=== PATIENT | female | born 1990 | race Caucasian/White ===

== ENCOUNTER 2017-01-21 19:53 | Emergency (ER) | payer OTHER ==
[~2017-01-21] VITALS: Ht 154.9 cm; Wt 70.0 kg
[2017-01-21 20:01] VITALS: TEMP 36.9; Ht 154.9 cm; Wt 70.0 kg
--- NOTE | 2017-01-21 20:46 | EMERGENCY ROOM VISIT NOTE ---
History Report prepared by Kevin: Jesus [place] Under the Supervision of: Dr. Jose M Geiger M.D. First contact with patient: 20:33 Chief Complaint: ABDOMINAL PAIN Stated Complaint: 3-5 WEEKS PREG, BAD CRAMPING Nursing Triage Summary: abdominal cramping for 2 hours. pt dx at [facility] 3-5 weeks along. no bleeding or spotting. History of Present Illness The patient is a 26 year old female who presents to the Emergency Room with complaints of intermittent abdominal cramping that began 2 hours ago. She rates her pain an 8/10. Last week, she was experiencing this same abdominal cramping so she went to [facility] because she thought it was a UTI. She was diagnosed with and discharged. Earlier that month, they told her that she would not be able to have children secondary to her PCOS. Her last menstrual period was December 09. This is her first . Her cramping symptoms then went away until today. She came here because she was told that [facility] does not know how to treat and would have been transferred. She denies any vaginal bleeding, burning with urinating, back pain , fevers, chills, or vomiting. She notes that she gets nauseated at night, but believes this to be from the . Source of History: patient Onset: 2 hours ago Position: abdomen (lower) Symptom Intensity: 8/10 Quality: cramping Timing: constant Associated Symptoms: + nausea, No fevers, No chills, No vomiting, No back pain, No urinary symptoms Review of Systems See HPI for pertinent positives and negatives. A total of ten systems were reviewed and were otherwise negative. Past Medical & Surgical Medical Problems: (1) Anxiety (2) Asthma (3) PCOS (polycystic ovarian syndrome) Family History Patient reports no known family medical history. Social History Smoking Status: Former Smoker Smokeless Tobacco Use: No Alcohol Use: none Drug Use: none Occupation Status: employed Current/Historical Medications Scheduled Pediatric Multiple Vitamin W/ (Flintstones Chewable), 1 TAB PO QAM Allergies Coded Allergies: Iodide (Verified Allergy, Intermediate, hives, 01/21/17) Sulfamethoxazole w/Trimethoprim (Verified Allergy, Intermediate, rash, 01/21/17) Amoxicillin (Verified Allergy, Unknown, hives, 01/21/17) Clavulanic Acid (Verified Allergy, Unknown, hives, 01/21/17) Nitrofurantoin (Verified Allergy, Unknown, rash, 01/21/17) Penicillins (Verified Allergy, Unknown, swelling, 01/21/17) Physical Exam Vital Signs Date Time Temp Pulse Resp B/P (MAP) Pulse Ox O2 Delivery O2 Flow Rate FiO2 01/22/17 00:04 72 15 108/68 99 01/21/17 23:18 69 14 112/71 99 Room Air 01/21/17 22:13 82 16 113/68 100 Room Air 01/21/17 21:23 74 01/21/17 21:19 93 18 113/73 99 Room Air 01/21/17 20:01 36.9 92 18 134/86 99 Room Air Physical Exam GENERAL: Awake, alert, well-appearing, in no distress HENT: Normocephalic, atraumatic. Dry mucous membranes. EYES: Normal conjunctiva. Sclera non-icteric. NECK: Supple. No nuchal rigidity. FROM. No JVD. RESPIRATORY: Clear to auscultation. CARDIAC: Regular rate, normal rhythm. Extremities warm and well perfused. Pulses equal. ABDOMEN: Soft, non-distended. No tenderness to palpation. No rebound or guarding. No masses. RECTAL: Deferred. MUSCULOSKELETAL: Chest examination reveals no tenderness. The back is symmetrical on inspection without obvious abnormality. There is no CVA tenderness to palpation. No joint edema. LOWER EXTREMITIES: Calves are equal size bilaterally and non-tender. No edema. No discoloration. NEURO: Normal sensorium. No sensory or motor deficits noted. SKIN: No rash or jaundice noted. Medical Decision & Procedures ER Provider Diagnostic Interpretation: Radiology results as stated below per my review and radiologist interpretation: ECTOPIC ULTRASOUND CLINICAL HISTORY: Abdominal cramping in r/o ectopic/SAB COMPARISON STUDY: None. FINDINGS: Transabdominal and transvaginal scanning of the pelvis was performed. The uterus is retroflexed. There is a single intrauterine gestational sac, yolk sac, and pole. The crown-rump length is 5.4 mm consistent with a 6 week and 2 day intrauterine gestation. heart rate was identified at 127 bpm. The ovaries are within normal limits. Small complex cyst within the left ovary favors a corpus luteum. There are few nabothian cysts seen within the cervix. The cervix appears closed. There is a tiny subchorionic hematoma which is considered to be within the range of normal limits. IMPRESSION: A single viable 6 week and 2 day intrauterine gestation demonstrating a heart rate of 127 bpm. Electronically signed by: Dustin Jolley M.D. 01/21/2017 10:58 PM Dictated Date/Time: 01/21/2017 10:55 PM Laboratory Results 01/21/17 21:15 Red Blood Count 4.37, Mean Corpuscular Volume 85.4, Mean Corpuscular Hemoglobin 30.2, Mean Corpuscular Hemoglobin Concent 35.4, Mean Platelet Volume 11.4, Neutrophils (%) (Auto) 71.0, Lymphocytes (%) (Auto) 21.5, Monocytes (%) (Auto) 5.9, Eosinophils (%) (Auto) 0.9, Basophils (%) (Auto) 0.4, Neutrophils # (Auto) 8.75, Lymphocytes # (Auto) 2.65, Monocytes # (Auto) 0.73, Eosinophils # (Auto) 0.11, Basophils # (Auto) 0.05 01/21/17 21:15 Test 01/21/17 21:15 01/21/17 22:02 White Blood Count 12.33 K/uL (4.8-10.8) Red Blood Count 4.37 M/uL (4.2-5.4) Hemoglobin 13.2 g/dL (12.0-16.0) Hematocrit 37.3 % (37-47) Mean Corpuscular Volume 85.4 fL (80-100) Mean Corpuscular Hemoglobin 30.2 pg (25-34) Mean Corpuscular Hemoglobin Concent 35.4 g/dl (32-36) Platelet Count 176 K/uL (130-400) Mean Platelet Volume 11.4 fL (7.4-10.4) Neutrophils (%) (Auto) 71.0 % Lymphocytes (%) (Auto) 21.5 % Monocytes (%) (Auto) 5.9 % Eosinophils (%) (Auto) 0.9 % Basophils (%) (Auto) 0.4 % Neutrophils # (Auto) 8.75 K/uL (1.4-6.5) Lymphocytes # (Auto) 2.65 K/uL (1.2-3.4) Monocytes # (Auto) 0.73 K/uL (0.11-0.59) Eosinophils # (Auto) 0.11 K/uL (0-0.5) Basophils # (Auto) 0.05 K/uL (0-0.2) RDW Standard Deviation 39.4 fL (36.4-46.3) RDW Coefficient of Variation 12.7 % (11.5-14.5) Immature Granulocyte % (Auto) 0.3 % Immature Granulocyte # (Auto) 0.04 K/uL (0.00-0.02) Anion Gap 6.0 mmol/L (3-11) Est Creatinine Clear Calc Drug Dose 98.6 ml/min Estimated GFR () 122.5 Estimated GFR (Non- 105.7 BUN/Creatinine Ratio 12.7 (10-20) Calcium Level 9.1 mg/dl (8.5-10.1) Total Bilirubin 0.2 mg/dl (0.2-1) Direct Bilirubin < 0.1 mg/dl (0-0.2) Aspartate Amino Transf (AST/SGOT) 11 U/L (15-37) Alanine Aminotransferase (ALT/SGPT) 17 U/L (12-78) Alkaline Phosphatase 57 U/L (45-117) Total Protein 7.6 gm/dl (6.4-8.2) Albumin 4.0 gm/dl (3.4-5.0) Lipase 150 U/L (73-393) Human Chorionic Gonadotropin, Quant 79455 mIU/mL Urine Color YELLOW Urine Appearance CLEAR (CLEAR) Urine pH 6.5 (4.5-7.5) Urine Specific [place] 1.019 (1.000-1.030) Urine Protein NEG (NEG) Urine Glucose (UA) NEG (NEG) Urine Ketones NEG (NEG) Urine Occult Blood NEG (NEG) Urine Nitrite NEG (NEG) Urine Bilirubin NEG (NEG) Urine Urobilinogen NEG (NEG) Urine Leukocyte Esterase NEG (NEG) Laboratory results reviewed by me Medications Administered Medications (Trade) Dose Ordered Sig/Cherie Route Start Time Stop Time Status Last Admin Dose Admin Sodium Chloride 1,000 ml @ 999 mls/hr Q1H1M STAT IV 01/21/17 20:51 01/21/17 21:51 DC 01/21/17 21:18 999 MLS/HR Sodium Chloride 1,000 ml @ 999 mls/hr Q1H1M STAT IV 01/21/17 22:58 01/21/17 23:58 DC 01/21/17 23:19 999 MLS/HR ED Course 2032: The patient was evaluated in room C4. A complete history and physical exam was performed. 2050: Ordered Tylenol Tab 1000 mg PO, Sodium Chloride 1000 ml @ 999 mls/hr IV 2146: The patient's bedside US showed no definitive IUP. She's going to be a formal US. 2257: Ordered Sodium Chloride 1000 ml @ 999 mls/hr IV Medical Decision I reviewed the patient's past medical history, medications, and the nursing notes as described above. Differential diagnosis includes but is not limited to: miscarriage, musculoskeletal strain, dehydration, electrolyte abnormalities, UTI, pyelonephritis, and ectopic . The patient is a 26-year-old woman with a past medical history PCO S presents to department for abdominal cramping per history of present illness. The patient is in no acute distress, afebrile with stable vital signs. HCG 30,000. Labs otherwise unremarkable. Bedside transabdominal ultrasound attempted to visualize IUP limited secondary to station all age with her patient's bladder remained decompressed despite 1 L of IV fluids consistent with her dry clinical appearance. Dehydration most likely precipitating patient's abdominal cramping and with further IV fluid hydration cramping had resolved. Formal transvaginal ultrasound shows a viable 6 week and 2 day fetus with heart rate 129. The patient has no vaginal symptoms and thus in her improvement with hydration no indication for pelvic exam at this time. Patient is agreeable with this. Findings and plan for follow-up reviewed patient. Patient agreeable and d/c'd per discharge instructions. Medication Reconcilliation Current Medication List: was personally reviewed by me Blood Pressure Screening Patient's blood pressure: Normal blood pressure Blood pressure disposition: Did not require urgent referral Impression Primary Impression: Abdominal cramping Additional Impression: Intrauterine Scribe Attestation The scribe's documentation has been prepared under my direction and personally reviewed by me in its entirety. I confirm that the note above accurately reflects all work, treatment, procedures, and medical decision making performed by me. Departure Information Dispostion Home / Self-Care Referrals Nazario Fowler M.D. 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 Your cramping was most likely due to dehydration. Otherwise, your exam, lab results, and ultrasound did not show signs of an emergent condition at this time. Return to the emergency department for worsening symptoms as described in the accompanying instructions. ECTOPIC ULTRASOUND CLINICAL HISTORY: Abdominal cramping in r/o ectopic/SAB COMPARISON STUDY: None. FINDINGS: Transabdominal and transvaginal scanning of the pelvis was performed. The uterus is retroflexed. There is a single intrauterine gestational sac, yolk sac, and pole. The crown-rump length is 5.4 mm consistent with a 6 week and 2 day intrauterine gestation. heart rate was identified at 127 bpm. The ovaries are within normal limits. Small complex cyst within the left ovary favors a corpus luteum. There are few nabothian cysts seen within the cervix. The cervix appears closed. There is a tiny subchorionic hematoma which is considered to be within the range of normal limits. IMPRESSION: A single viable 6 week and 2 day intrauterine gestation demonstrating a heart rate of 127 bpm. Problem Qualifiers
[2017-01-21] MEDS ORDERED: SODIUM CHLORIDE 0.9% 1000ML 1,000 ML IV STA ×2 (20:51→22:58)
[2017-01-21] MEDS ORDERED: ACETAMINOPHEN 500 MG TAB PO STA (20:51)
[2017-01-21] MEDS ORDERED: PEDICHW50 PO (20:59)
[2017-01-21 21:26] LABS: BASO % 0.4 %; BASO ABS # 0.05 K/uL (0-0.2); COMPLETE YES; EOS % 0.9 %; HEMATOCRIT 37.3 % (37-47); IG% 0.3 %; LYMPH % 21.5 %; LYMPH ABS # 2.65 K/uL (1.2-3.4); MEAN CELL VOLUME 85.4 fL (80-100); MEAN CORPUSCULAR HEMOGLOBIN 30.2 pg (25-34); MEAN CORPUSCULAR HGB CONC 35.4 g/dl (32-36); MEAN PLATELET VOLUME 11.4 fL (7.4-10.4); MONO % 5.9 %; PLATELET COUNT 176 K/uL (130-400); RED BLOOD COUNT 4.37 M/uL (4.2-5.4); WHITE BLOOD COUNT 12.33 K/uL (4.8-10.8)
[2017-01-21 21:46] LABS: ALT/SGPT 17 U/L (12-78); BLOOD UREA NITROGEN 10 mg/dl (7-18); BUN/CREATININE RATIO 12.7 (10-20); CALCIUM 9.1 mg/dl (8.5-10.1); CARBON DIOXIDE 26 mmol/L (21-32); CHLORIDE 106 mmol/L (98-107); CREATININE 0.78 mg/dl (0.60-1.20); GLUCOSE 86 mg/dl (70-99); POTASSIUM 3.2 mmol/L (3.5-5.1); SODIUM 139 mmol/L (136-145)
[2017-01-21 21:49] LABS: ALKALINE PHOSPHATASE 57 U/L (45-117); AST/SGOT 11 U/L (15-37)
[2017-01-21 22:17] LABS: URINE APPEARANCE CLEAR (CLEAR); URINE BILIRUBIN NEG (NEG); URINE COLOR YELLOW; URINE NITRITE NEG (NEG); URINE PH 6.5 (4.5-7.5); URINE SPECIFIC GRAVITY 1.019 (1.000-1.030); UROBILINOGEN NEG (NEG); ZZUR CULT IF INDIC CLEAN CATCH NO
[2017-01-21 22:21] LABS: MANUAL MICROSCOPIC REQUIRED? NO; REVIEW REQ? NO
--- NOTE | 2017-01-21 23:00 | DIAGNOSTIC IMAGING REPORT ---
ECTOPIC ULTRASOUND CLINICAL HISTORY: Abdominal cramping in r/o ectopic/SAB COMPARISON STUDY: None. FINDINGS: Transabdominal and transvaginal scanning of the pelvis was performed. The uterus is retroflexed. There is a single intrauterine gestational sac, yolk sac, and pole. The crown-rump length is 5.4 mm consistent with a 6 week and 2 day intrauterine gestation. heart rate was identified at 127 bpm. The ovaries are within normal limits. Small complex cyst within the left ovary favors a corpus luteum. There are few nabothian cysts seen within the cervix. The cervix appears closed. There is a tiny subchorionic hematoma which is considered to be within the range of normal limits. IMPRESSION: A single viable 6 week and 2 day intrauterine gestation demonstrating a heart rate of 127 bpm. Electronically signed by: Dustin Jolley M.D. 01/21/2017 10:58 PM Dictated Date/Time: 01/21/2017 10:55 PM
[2017-01-22 00:04] VITALS: BP 108/68; PULSE 72; O2SAT 99
== END 2017-01-22 00:04 | disposition home or self-care (01) ==
LOC: C.EDB 19:54 → C.EDC 01-22 00:04
DX: O26.891 Other specified pregnancy related conditions, first trimester (principal); R10.9 Unspecified abdominal pain; O99.511 Diseases of the respiratory system complicating pregnancy, first trimester; J45.909 Unspecified asthma, uncomplicated; O99.281 Endocrine, nutritional and metabolic diseases complicating pregnancy, first trimester; E28.2 Polycystic ovarian syndrome; Z3A.01 Less than 8 weeks gestation of pregnancy; Z87.891 Personal history of nicotine dependence

== ENCOUNTER 2017-01-24 17:46 | Emergency (ER) | payer OTHER ==
[~2017-01-24] VITALS: Ht 154.9 cm; Wt 69.9 kg
[~2017-01-24 17:46] MED LIST: PEDICHW50 PO
[2017-01-24 17:55] VITALS: BP 122/86; TEMP 37; Ht 154.9 cm; Wt 69.9 kg
[2017-01-24 19:02] LABS: BASO % 0.3 %; BASO ABS # 0.04 K/uL (0-0.2); COMPLETE YES; EOS % 0.8 %; HEMATOCRIT 40.4 % (37-47); IG% 0.3 %; LYMPH % 22.2 %; LYMPH ABS # 2.97 K/uL (1.2-3.4); MEAN CELL VOLUME 85.2 fL (80-100); MEAN CORPUSCULAR HEMOGLOBIN 31.2 pg (25-34); MEAN CORPUSCULAR HGB CONC 36.6 g/dl (32-36); MEAN PLATELET VOLUME 11.8 fL (7.4-10.4); MONO % 5.5 %; NEUT % 70.9 %; PLATELET COUNT 210 K/uL (130-400); RED BLOOD COUNT 4.74 M/uL (4.2-5.4); WHITE BLOOD COUNT 13.36 K/uL (4.8-10.8)
[2017-01-24 19:21] LABS: BUN/CREATININE RATIO 8.2 (10-20); CALCIUM 8.8 mg/dl (8.5-10.1); CREATININE 0.7 mg/dl (0.60-1.20); POTASSIUM 3.5 mmol/L (3.5-5.1)
[2017-01-24 19:23] LABS: ALB/GLOB RATIO 1.1 (0.9-2)
[2017-01-24 19:39] LABS: URINE APPEARANCE CLEAR (CLEAR); URINE BILIRUBIN NEG (NEG); URINE COLOR YELLOW; URINE NITRITE NEG (NEG); URINE PH 7.5 (4.5-7.5); UROBILINOGEN NEG (NEG); ZZUR CULT IF INDIC CLEAN CATCH NO
[2017-01-24 19:40] LABS: MANUAL MICROSCOPIC REQUIRED? NO; REVIEW REQ? NO
--- NOTE | 2017-01-24 20:07 | DIAGNOSTIC IMAGING REPORT ---
<14 WKS SINGLE CLINICAL HISTORY: 26 years-old Female presenting with , lower abdominal cramping, last menstrual period 12/09/2016. TECHNIQUE: Real-time grayscale and M-mode Doppler ultrasound imaging of the pelvis was performed first using a transabdominal probe and subsequently transvaginal for better characterization. COMPARISON: 01/21/2017. FINDINGS: Uterus: Single live intrauterine . Yolk sac measures 5 mm. [place]-rump length measures 8 mm corresponding to an estimated gestational age of 6 weeks 5 days. Estimated date of delivery 09/14/2017. heart rate 100 beats per minute. Retroverted uterus. Normal amniotic fluid volume. Unable to accurately assess placental implantation secondary to early gestational age. No perigestational fluid to suggest hemorrhage. Cervix long and closed. Nabothian cysts noted. Right adnexa: Right ovary normal. Right ovary measures 3.0 x 1.5 x 2.5 cm. Normal color Doppler flow and arterial and venous waveforms within the ovarian parenchyma. Left adnexa: Left ovary with corpus luteum. Left ovary measures 4.5 x 2.5 x 2.1 cm. Normal color Doppler flow and arterial and venous waveforms within the ovarian parenchyma. Other: No free fluid. IMPRESSION: Single live intrauterine with estimated gestational age 6 weeks 5 days and estimated date of delivery 09/14/2017. Electronically signed by: Juan López M.D. 01/24/2017 8:06 PM Dictated Date/Time: 01/24/2017 8:01 PM
--- NOTE | 2017-01-24 20:26 | EMERGENCY ROOM VISIT NOTE ---
History First contact with patient: 18:42 Chief Complaint: ABDOMINAL PAIN Stated Complaint: 6WKS-5DAYS PREG W/CRAMPING Nursing Triage Summary: patient 6 week and has been having cramping no bleeding/ OBGYN told her to come in and be evaluated if the cramping got worse. History of Present Illness The patient is a 26 year old female who presents to the Emergency Room with complaints of "abdominal cramping 4 hours. She notes it is lower in the abdomen, and it feels like she is experiencing her menses. She states she is not menstruating currently. She is 6 weeks, 5 days . She states that she was seen here not long ago for similar. She sees allen Cisneros ADMINISTRATIVE AND PROGRAM SPECIALIST on the of this month. She denies any vaginal bleeding, urinary symptoms, vaginal discharge. She denies any fevers or chills. This is her first . Review of Systems A complete 6-point Review of Systems was discussed with the patient, with pertinent positives and negatives listed in the History of Present Illness. All remaining Review of Systems questions can be considered negative unless otherwise specified. Past Medical/Surgical History Medical Problems: (1) Anxiety (2) Asthma (3) PCOS (polycystic ovarian syndrome) Family History Patient reports no known family medical history. Social History Smoking Status: Former Smoker Alcohol Use: none Drug Use: none Occupation Status: employed Current/Historical Medications No Active Prescriptions or Reported Meds Physical Exam Vital Signs Date Time Temp Pulse Resp B/P (MAP) Pulse Ox O2 Delivery O2 Flow Rate FiO2 01/24/17 21:09 82 18 100 01/24/17 17:55 37.0 104 18 122/86 99 Room Air Physical Exam VITAL SIGNS - Vital signs and nursing notes were reviewed. Stable. GENERAL - 26-year-old female appearing her stated age who is in no acute distress. Communicates well with provider and answers questions appropriately. SKIN - Without rashes. No petechia or meningeal rashes. LUNGS - Chest wall symmetric without accessory muscle use, intercostals retractions, or central cyanosis. Normal vesicular breath sounds CTA B/L. No wheezes, rales, or rhonchi appreciated. CARDIAC - RRR with S1/S2. No murmur, rubs, or gallops appreciated. ABDOMEN - Abdominal contour normal without pulsations or visible masses. BS normoactive all four quadrants. No tenderness, palpable masses, hepatosplenomegaly, or ascites noted. EXTREMITIES - No clubbing or peripheral cyanosis. No pretibial edema present. + 5/5 strength noted in UE/LE bilaterally. PELVIC EXAM: The patient's nurse was present to assist with exam, and daycare director. The patient was educated upon what her pelvic exam was, and she was offered to decline. Patient did not decline. I explained to her the pelvic exam. The patient was prepared and positioned for best examination. Patient was positioned by nurse. The external genitalia, mons pubis, labia majora, labia minora, clitoris, he urethral meatus, Bartholin's glands, perineum, and anus were within normal limits. The speculum was held then a 45 angle and properly lubricated, the speculum was inserted without difficulty to the depth of the cervix. Speculum was then open slowly. Cervix was identified. The cervix was within normal limits and did not display any purulent discharge nor was erythematous. Closed cervix and no bleeding. Patient did not experience any discomfort. The exam was concluded, the nurse felt the patient back to her bed. Exam was unremarkable and tolerated well without complication. Medical Decision & Procedures ER Provider Diagnostic Interpretation: <14 WKS SINGLE CLINICAL HISTORY: 26 years-old Female presenting with , lower abdominal cramping, last menstrual period 12/09/2016. TECHNIQUE: Real-time grayscale and M-mode Doppler ultrasound imaging of the pelvis was performed first using a transabdominal probe and subsequently transvaginal for better characterization. COMPARISON: 01/21/2017. FINDINGS: Uterus: Single live intrauterine . Yolk sac measures 5 mm. [place]-rump length measures 8 mm corresponding to an estimated gestational age of 6 weeks 5 days. Estimated date of delivery 09/14/2017. heart rate 100 beats per minute. Retroverted uterus. Normal amniotic fluid volume. Unable to accurately assess placental implantation secondary to early gestational age. No perigestational fluid to suggest hemorrhage. Cervix long and closed. Nabothian cysts noted. Right adnexa: Right ovary normal. Right ovary measures 3.0 x 1.5 x 2.5 cm. Normal color Doppler flow and arterial and venous waveforms within the ovarian parenchyma. Left adnexa: Left ovary with corpus luteum. Left ovary measures 4.5 x 2.5 x 2.1 cm. Normal color Doppler flow and arterial and venous waveforms within the ovarian parenchyma. Other: No free fluid. IMPRESSION: Single live intrauterine with estimated gestational age 6 weeks 5 days and estimated date of delivery 09/14/2017. Electronically signed by: Juan López M.D. 01/24/2017 8:06 PM Dictated Date/Time: 01/24/2017 8:01 PM Laboratory Results 01/24/17 18:25 Red Blood Count 4.74, Mean Corpuscular Volume 85.2, Mean Corpuscular Hemoglobin 31.2, Mean Corpuscular Hemoglobin Concent 36.6, Mean Platelet Volume 11.8, Neutrophils (%) (Auto) 70.9, Lymphocytes (%) (Auto) 22.2, Monocytes (%) (Auto) 5.5, Eosinophils (%) (Auto) 0.8, Basophils (%) (Auto) 0.3, Neutrophils # (Auto) 9.47, Lymphocytes # (Auto) 2.97, Monocytes # (Auto) 0.73, Eosinophils # (Auto) 0.11, Basophils # (Auto) 0.04 01/24/17 18:25 Test 01/24/17 18:25 01/24/17 18:30 White Blood Count 13.36 K/uL (4.8-10.8) Red Blood Count 4.74 M/uL (4.2-5.4) Hemoglobin 14.8 g/dL (12.0-16.0) Hematocrit 40.4 % (37-47) Mean Corpuscular Volume 85.2 fL (80-100) Mean Corpuscular Hemoglobin 31.2 pg (25-34) Mean Corpuscular Hemoglobin Concent 36.6 g/dl (32-36) Platelet Count 210 K/uL (130-400) Mean Platelet Volume 11.8 fL (7.4-10.4) Neutrophils (%) (Auto) 70.9 % Lymphocytes (%) (Auto) 22.2 % Monocytes (%) (Auto) 5.5 % Eosinophils (%) (Auto) 0.8 % Basophils (%) (Auto) 0.3 % Neutrophils # (Auto) 9.47 K/uL (1.4-6.5) Lymphocytes # (Auto) 2.97 K/uL (1.2-3.4) Monocytes # (Auto) 0.73 K/uL (0.11-0.59) Eosinophils # (Auto) 0.11 K/uL (0-0.5) Basophils # (Auto) 0.04 K/uL (0-0.2) RDW Standard Deviation 39.6 fL (36.4-46.3) RDW Coefficient of Variation 12.7 % (11.5-14.5) Immature Granulocyte % (Auto) 0.3 % Immature Granulocyte # (Auto) 0.04 K/uL (0.00-0.02) Anion Gap 4.0 mmol/L (3-11) Est Creatinine Clear Calc Drug Dose 109.8 ml/min Estimated GFR () 139.6 Estimated GFR (Non- 120.4 BUN/Creatinine Ratio 8.2 (10-20) Calcium Level 8.8 mg/dl (8.5-10.1) Total Bilirubin 0.3 mg/dl (0.2-1) Aspartate Amino Transf (AST/SGOT) 13 U/L (15-37) Alanine Aminotransferase (ALT/SGPT) 22 U/L (12-78) Alkaline Phosphatase 68 U/L (45-117) Total Protein 8.1 gm/dl (6.4-8.2) Albumin 4.2 gm/dl (3.4-5.0) Globulin 3.9 gm/dl (2.5-4.0) Albumin/Globulin Ratio 1.1 (0.9-2) Human Chorionic Gonadotropin, Quant 80485 mIU/mL Urine Color YELLOW Urine Appearance CLEAR (CLEAR) Urine pH 7.5 (4.5-7.5) Urine Specific [place] 1.010 (1.000-1.030) Urine Protein NEG (NEG) Urine Glucose (UA) NEG (NEG) Urine Ketones NEG (NEG) Urine Occult Blood NEG (NEG) Urine Nitrite NEG (NEG) Urine Bilirubin NEG (NEG) Urine Urobilinogen NEG (NEG) Urine Leukocyte Esterase NEG (NEG) Medical Decision Patient was seen and evaluated as above. After obtaining a thorough history and physical examination decision was made to obtain IV access, as well as was obtained pelvic ultrasound. Results as above. There is slight leukocytosis, I believe this is of no emergent significance. Ultrasound was normal. I called the on-call ADMINISTRATIVE AND PROGRAM SPECIALIST surgeon, Dr. Vazquez. She felt the patient was also able to follow-up in the office, and we were both reassured that there was no pelvic cramping revealing blood, or open cervix. No significant anemia. Metabolic panel unremarkable for acute process. The Quant is elevated. This is appropriate. Patient's type is O+ and she is Rh+. Urine was negative. She is to follow-up with her ADMINISTRATIVE AND PROGRAM SPECIALIST. She was educated upon management, educated upon worrisome symptoms which to return, had questions answered prior distress, and was discharged condition. She was felt stable for outpatient management. In evaluation treatment this patient following differential diagnoses were entertained: Miscarriage, appendicitis, diverticulitis, UTI, among others. Impression Primary Impression: Suprapubic pain, acute Additional Impression: Pelvic cramping Departure Information Dispostion Home / Self-Care Condition GOOD Prescriptions No Active Prescriptions or Reported Meds Referrals Nazario Fowler M.D. (PCP) Patient Instructions My [facility] Additional Instructions .You have been treated in the Emergency Department your Abdominal Pain. Laboratory results and imaging studies have ruled out any emergent causes for your abdominal pain which would warrant admission or surgery. You are O+ and Rh+. For pain control, you can use the following eraw-dao-huxbxoc medicines (if >12 yo): - Regular strength (325mg/tab) Tylenol (acetaminophen) 2 tabs every 4-6 hours as needed. Do not exceed 12 tablets in a 24 hour period. Avoid taking more than 3 grams (4000 mg) of Tylenol per day. This includes any other sources of acetaminophen you may take on a regular basis. Drink plenty of water and stay well hydrated. As with any trip to the Emergency Department, you should follow-up with your Primary Care Provider from today's visit. Please keep your follow-up with ADMINISTRATIVE AND PROGRAM SPECIALIST. If you start to experience vaginal bleeding or spotting please return immediately. Return to the emergency department if your symptoms persist despite treatment plan outlined above or if the following symptoms occur: increased fevers, chills , worsening nausea/vomiting, blood in your stool or urine. Problem Qualifiers
[2017-01-24 21:09] VITALS: PULSE 82; O2SAT 100
== END 2017-01-24 21:10 | disposition home or self-care (01) ==
LOC: C.EDB 17:48 → C.EDD 21:10
DX: O99.89 Other specified diseases and conditions complicating pregnancy, childbirth and the puerperium (principal); R10.30 Lower abdominal pain, unspecified; R10.2 Pelvic and perineal pain; Z3A.01 Less than 8 weeks gestation of pregnancy; F41.9 Anxiety disorder, unspecified; J45.909 Unspecified asthma, uncomplicated; E28.2 Polycystic ovarian syndrome; Z87.891 Personal history of nicotine dependence

== ENCOUNTER → 2017-02-06 | Outpatient (CLI) | payer OTHER ==
[2017-02-06 14:21] LABS: URINE APPEARANCE CLEAR (CLEAR); URINE BILIRUBIN NEG (NEG); URINE COLOR YELLOW; URINE NITRITE NEG (NEG); URINE SPECIFIC GRAVITY 1.013 (1.000-1.030); UROBILINOGEN NEG (NEG)
[2017-02-06 14:30] LABS: MANUAL MICROSCOPIC REQUIRED? NO; REVIEW REQ? NO
== END | disposition home or self-care (01) ==
LOC: C.LABSPEC 13:19
PROVIDERS: ATTEND Obstetrics & Gynecology
DX: Z34.01 Encounter for supervision of normal first pregnancy, first trimester (principal); Z3A.00 Weeks of gestation of pregnancy not specified

== ENCOUNTER → 2017-04-04 | Outpatient (CLI) | payer OTHER ==
[2017-04-04 11:19] LABS: GTGD 50 Grams
[2017-04-04 11:34] LABS: THYROID STIMULATING HORMONE 5.25 uIu/ml (0.300-4.500)
== END | disposition home or self-care (01) ==
LOC: C.LAB1850 09:14
PROVIDERS: ATTEND Obstetrics & Gynecology
DX: Z34.02 Encounter for supervision of normal first pregnancy, second trimester (principal); Z86.39 Personal history of other endocrine, nutritional and metabolic disease

== ENCOUNTER → 2017-05-27 | Outpatient (CLI) | payer OTHER | END | disposition home or self-care (01) | LOC: C.LAB1850 10:19 | PROVIDERS: ATTEND Internal Medicine Endocrinology, Diabetes & Metabolism | DX: E03.9 Hypothyroidism, unspecified (principal) ==

== ENCOUNTER → 2017-06-25 | Outpatient (CLI) | payer OTHER | END | disposition home or self-care (01) | LOC: C.LABSPEC 16:17 | PROVIDERS: ATTEND Obstetrics & Gynecology | DX: Z34.03 Encounter for supervision of normal first pregnancy, third trimester (principal) ==

== ENCOUNTER → 2017-06-27 | Outpatient (CLI) | payer OTHER ==
[2017-06-27 13:14] LABS: HEMATOCRIT 33.8 % (37-47); HEMOGLOBIN 11.6 g/dL (12.0-16.0)
== END | disposition home or self-care (01) ==
LOC: C.LAB 10:40
PROVIDERS: ATTEND Obstetrics & Gynecology
DX: O99.283 Endocrine, nutritional and metabolic diseases complicating pregnancy, third trimester (principal); E03.9 Hypothyroidism, unspecified

== ENCOUNTER → 2017-07-11 | Outpatient (CLI) | payer OTHER | END | disposition home or self-care (01) | LOC: C.PAPS 08:57 | PROVIDERS: ATTEND Obstetrics & Gynecology | DX: Z34.03 Encounter for supervision of normal first pregnancy, third trimester (principal) ==

== ENCOUNTER → 2017-07-16 | Outpatient (CLI) | payer OTHER | END | disposition home or self-care (01) | LOC: C.LAB1850 08:23 | PROVIDERS: ATTEND Obstetrics & Gynecology | DX: O28.1 Abnormal biochemical finding on antenatal screening of mother (principal) ==

== ENCOUNTER → 2017-07-24 | Outpatient (CLI) | payer OTHER | END | disposition home or self-care (01) | LOC: C.LAB1850 11:27 | PROVIDERS: ATTEND Internal Medicine Endocrinology, Diabetes & Metabolism | DX: E03.9 Hypothyroidism, unspecified (principal) ==

== ENCOUNTER 2017-08-19 03:45 | Emergency (ER) | payer OTHER ==
[~2017-08-19] VITALS: Ht 154.9 cm; Wt 94.1 kg
[2017-08-19 03:48] VITALS: Ht 154.9 cm; Wt 94.1 kg
[2017-08-19] MEDS ORDERED: SODIUM CHLORIDE 0.9% 1000ML 1,000 ML IV STA (04:02)
[2017-08-19] MEDS ORDERED: ONDANSETRON INJ 2 MG/ML 2 ML VIAL IV STA (04:02)
[2017-08-19] MEDS ORDERED: LEVO75TA PO (04:18)
[2017-08-19] MEDS ORDERED: LEVO50TA PO (04:18)
[2017-08-19] MEDS ORDERED: PEDICHW50 PO (04:18)
[2017-08-19 04:24] LABS: HEMATOCRIT 38.9 % (37-47); HEMOGLOBIN 13.8 g/dL (12.0-16.0); MEAN CELL VOLUME 84.2 fL (80-100); MEAN CORPUSCULAR HEMOGLOBIN 29.9 pg (25-34); MEAN CORPUSCULAR HGB CONC 35.5 g/dl (32-36); MEAN PLATELET VOLUME 11.2 fL (7.4-10.4); PLATELET COUNT 162 K/uL (130-400); RED CELL DISTRIBUTION WIDTH SD 42.8 fL (36.4-46.3); WHITE BLOOD COUNT 18.71 K/uL (4.8-10.8)
[2017-08-19 04:41] LABS: BLOOD UREA NITROGEN 6 mg/dl (7-18); CALCIUM 8.9 mg/dl (8.5-10.1); CARBON DIOXIDE 22 mmol/L (21-32); CREATININE 0.55 mg/dl (0.60-1.20); GLUCOSE 96 mg/dl (70-99); POTASSIUM 3.4 mmol/L (3.5-5.1); SODIUM 138 mmol/L (136-145)
[2017-08-19 04:47] LABS: BASO % 0.1 %; BASO ABS # 0.02 K/uL (0-0.2); EOS % 0.7 %; EOS ABS # 0.13 K/uL (0-0.5); LYMPH % 8.6 %; LYMPH ABS # 1.61 K/uL (1.2-3.4); MONO % 5.5 %; MONO ABS # 1.02 K/uL (0.11-0.59); NEUT ABS # 15.73 K/uL (1.4-6.5)
--- NOTE | 2017-08-19 05:18 | EMERGENCY ROOM VISIT NOTE ---
History First contact with patient: 03:52 Chief Complaint: FLU LIKE SX Stated Complaint: VOMITING,DIARRHEA,BODY ACHES,STOMACH CRAMPS History of Present Illness The patient is a 27 year old female who presents to the Emergency Room with complaints of nausea, vomiting, diarrhea and abdominal cramping the past few hours who is 34 weeks . Other people have had a GI bug that she has been around. Her seen earlier today for the same complaint. Patient denies vaginal bleeding, contractions, vaginal leakage, urinary symptoms, fever , chills, back pain, localized abdominal pain, chest pain, dyspnea. No bad food exposure. Review of Systems An 10 system review of systems was completed with positives and pertinent negatives listed in the HPI. Past Medical/Surgical History Medical Problems: (1) Anxiety (2) Asthma (3) PCOS (polycystic ovarian syndrome) Family History Patient reports no known family medical history. Social History Smoking Status: Never Smoker Alcohol Use: none Drug Use: none Occupation Status: employed Current/Historical Medications Scheduled Levothyroxine Sodium (Synthroid), 50 MCG PO Q2D Levothyroxine Sodium (Synthroid), 75 MCG PO Q2D Pediatric Multiple Vitamin W/ (Flintstones Chewable), 2 TABS PO DAILY Physical Exam Vital Signs Date Time Temp Pulse Resp B/P (MAP) Pulse Ox O2 Delivery O2 Flow Rate FiO2 08/19/17 05:15 36.9 98 103/60 98 Room Air 08/19/17 03:48 36.8 128 18 117/75 97 Room Air Physical Exam VITALS: Vitals are noted on the nurse's note and reviewed by myself. Vital signs tachycardic GENERAL: Pleasant female vomiting, in no acute distress, nondiaphoretic, well- developed well-nourished. SKIN: The skin was without rashes, erythema, edema, or bruising. There is no tenting of the skin. Capillary reflex less than 2 seconds. HEAD: Normocephalic atraumatic. EARS: External auditory canals clear, tympanic membranes pearly soto without erythema or effusion bilaterally. EYES: Pupils equal round and reactive to light and accommodation. Conjunctivae without injection, sclerae without icterus. Extraocular movements intact. NOSE: Patent, turbinates without inflammation or discharge MOUTH: Mucous membranes mildly dry; pharynx without erythema or exudate. Uvula midline. Airway patent. Tongue does not deviate. NECK: Supple without nuchal rigidity. No lymphadenopathy. No thyromegaly. Cervical spine is nontender. No JVD. HEART: Tachycardic rate and rhythm without murmurs gallops or rubs. LUNGS: Clear to auscultation bilaterally without wheezes, rales or rhonchi. No retractions or accessory muscle use. ABDOMEN: Positive bowel sounds x 4. Normal tympanic percussion. Soft, 34 weeks , nontender to palpation. Ayers sign negative. No guarding or rebound tenderness. No CVA tenderness MUSCULOSKELETAL: No muscle atrophy, erythema, or edema noted. NEURO: Patient was alert and oriented to person place and time. Normal sensation to light and sharp touch. No focal neurological deficits. Medical Decision & Procedures Laboratory Results 08/19/17 04:10 Red Blood Count 4.62, Mean Corpuscular Volume 84.2, Mean Corpuscular Hemoglobin 29.9, Mean Corpuscular Hemoglobin Concent 35.5, Mean Platelet Volume 11.2, Neutrophils (%) (Auto) 84.0, Lymphocytes (%) (Auto) 8.6, Monocytes (%) (Auto) 5.5, Eosinophils (%) (Auto) 0.7, Basophils (%) (Auto) 0.1, Neutrophils # (Auto) 15.73, Lymphocytes # (Auto) 1.61, Monocytes # (Auto) 1.02, Eosinophils # (Auto) 0.13, Basophils # (Auto) 0.02 08/19/17 04:10 Test 08/19/17 04:10 White Blood Count 18.71 K/uL (4.8-10.8) Red Blood Count 4.62 M/uL (4.2-5.4) Hemoglobin 13.8 g/dL (12.0-16.0) Hematocrit 38.9 % (37-47) Mean Corpuscular Volume 84.2 fL (80-100) Mean Corpuscular Hemoglobin 29.9 pg (25-34) Mean Corpuscular Hemoglobin Concent 35.5 g/dl (32-36) Platelet Count 162 K/uL (130-400) Mean Platelet Volume 11.2 fL (7.4-10.4) Neutrophils (%) (Auto) 84.0 % Lymphocytes (%) (Auto) 8.6 % Monocytes (%) (Auto) 5.5 % Eosinophils (%) (Auto) 0.7 % Basophils (%) (Auto) 0.1 % Neutrophils # (Auto) 15.73 K/uL (1.4-6.5) Lymphocytes # (Auto) 1.61 K/uL (1.2-3.4) Monocytes # (Auto) 1.02 K/uL (0.11-0.59) Eosinophils # (Auto) 0.13 K/uL (0-0.5) Basophils # (Auto) 0.02 K/uL (0-0.2) RDW Standard Deviation 42.8 fL (36.4-46.3) RDW Coefficient of Variation 14.0 % (11.5-14.5) Immature Granulocyte % (Auto) 1.1 % Immature Granulocyte # (Auto) 0.20 K/uL (0.00-0.02) Red Blood Cell Morphology Unremarkable Anion Gap 7.0 mmol/L (3-11) Est Creatinine Clear Calc Drug Dose 162.2 ml/min Estimated GFR () > 150.0 Estimated GFR (Non- 129.5 BUN/Creatinine Ratio 10.3 (10-20) Calcium Level 8.9 mg/dl (8.5-10.1) Medications Administered Medications (Trade) Dose Ordered Sig/Cherie Route Start Time Stop Time Status Last Admin Dose Admin Ondansetron HCl (Zofran Inj) 4 mg NOW STAT IV 08/19/17 04:02 08/19/17 04:04 DC 08/19/17 04:13 4 MG Sodium Chloride 1,000 ml @ 999 mls/hr Q1H1M STAT IV 08/19/17 04:02 08/19/17 05:02 DC 08/19/17 04:13 999 MLS/HR ED Course Prior records/ancillary studies reviewed. Triage Nursing notes reviewed. Additional history obtained from the family. The patient's history was concerning for nausea, vomiting, diarrhea, and abdominal pain. Differential diagnosis: Etiologies such as contractions, gastroenteritis, food borne illness, infections , appendicitis, diverticulitis, inflammatory bowel disease, obstruction, GI bleed, biliary pathology, as well as others were entertained. Physical examination findings: As above. Abdominal examination revealed no tenderness. Vital signs reviewed and revealed mildly tachycardic from dehydration. ER treatment provided: IV hydration 1 L NSS. Zofran Limited ultrasound at bedside done by myself shows active fetus with a heart rate in the 140s On reassessment the patient felt better. Patient was tolerating p.o. intake. Diagnostics interpretation by me: The labs revealed leukocytosis most likely from . No worrisome electrode abnormality. This appears to be consistent with vomiting and diarrhea most likely viral in etiology. Other family members are sick. Patient did not have acute abdomen on exam. She did not have localized pain. She does not feel like she is having contractions. She is tolerating fluids. She is advised to follow-up with FILTRATION OPERATOR or family care in a day or 2 here in the ER sooner for abdominal pain, fevers, vomiting, worsening signs or symptoms or as needed. By the evaluation outlined above emergent etiologies such as appendicitis, diverticulitis, obstruction, cardiac sources, mesenteric ischemia, aortic pathology, inflammatory bowel disease, renal colic, PUD, biliary pathology, UTI , as well as others were deemed relatively unlikely. The pt informed about the findings as listed above. All questions were answered and pleased with the treatment. Return instructions were outlined and the patient was discharged in stable condition. Outpatient prescription management: zofran Referral: The patient was referred to their primary care physician or [facility]TR[facility] OPERATOR for follow- up in 2 to 3 days for a recheck of the current condition. The chart was completed utilizing [employer] Speech voice recognition software. Grammatical errors, random word insertions, pronoun errors, and incomplete sentences are an occassional consequence of this system due to software limitations, ambient noise, and hardware issues. Any formal questions or concerns about the content, text, or information contained within the body of this dictation should be directly addressed to the physician pharmacy affairs assistant for clarification. Case reviewed with my attending Medical Decision As above Medication Reconcilliation Current Medication List: was personally reviewed by me Blood Pressure Screening Patient's blood pressure: Normal blood pressure Impression Primary Impression: Nausea vomiting and diarrhea Departure Information Dispostion Home / Self-Care Condition GOOD Referrals Nazario Fowler M.D. (PCP) Patient Instructions My [facility] Additional Instructions Zofran(odansetron) tablets 4mg: Take one and allow it to dissolve in your mouth every four to six hours as needed for nausea or vomiting. Rest and drink plenty of fluids as tolerated. Slow sips of water or sports drinks are recommended instead of large amounts all at once. Continue current medications. Once your stomach is settled start with a clear liquid diet (jello, soup broth, etc.) and then advance as tolerated. You should avoid full, heavy meals for about 24 hrs from the time your symptoms resolved. Return to the ER for persistent vomiting, fevers, abdominal pain, chest pains, difficulty breathing, black or bloody stools, worsening of your condition, or as needed. Follow up with your primary physician/FILTRATION OPERATOR in 2-3 days for a recheck of your current condition.
[2017-08-19] MEDS ORDERED: ONDANSETRON HOME PACK 4MG OD TAB PO ONE (05:30)
[2017-08-19 05:45] VITALS: BP 103/60; PULSE 98; TEMP 36.9; O2SAT 98
== END 2017-08-19 05:45 | disposition home or self-care (01) ==
LOC: C.EDB 03:46
DX: O21.9 Vomiting of pregnancy, unspecified (principal); R19.7 Diarrhea, unspecified; Z3A.34 34 weeks gestation of pregnancy; Z79.899 Other long term (current) drug therapy

== ENCOUNTER → 2017-08-21 | Outpatient (CLI) | payer OTHER ==
[~2017-08-21] MED LIST changes: +LEVO50TA PO; +LEVO75TA PO
== END | disposition home or self-care (01) ==
LOC: C.LAB1850 14:07
PROVIDERS: ATTEND Internal Medicine Endocrinology, Diabetes & Metabolism
DX: Z34.03 Encounter for supervision of normal first pregnancy, third trimester (principal); Z3A.00 Weeks of gestation of pregnancy not specified; E03.9 Hypothyroidism, unspecified

== ENCOUNTER → 2017-11-06 | Outpatient (CLI) | payer OTHER | END | disposition home or self-care (01) | LOC: C.LAB1850 09:55 | PROVIDERS: ATTEND Internal Medicine Endocrinology, Diabetes & Metabolism | DX: E06.3 Autoimmune thyroiditis (principal) ==